=== PATIENT | male | born 1965 | race Caucasian/White ===

== ENCOUNTER 2024-11-04 08:32 | Emergency (ER) | payer BC, OTHER, SELFPAY ==
--- NOTE | ~2024-11-04 | XR_ITS ---
EXAMINATION: XR shoulder LT min 2V, XR humerus LT DATE: 11/04/2024 10:30 INDICATION: Left shoulder and humeral pain. TECHNIQUE: 1. AP internally and externally rotated, AP oblique externally rotated and transscapular Y views of t he left shoulder were obtained. 2. Internal rotated view of the left humerus was obtained. COMPARISON: None FINDINGS: Normal alignment. No fracture.Mild osteoarthritis at the left glenohumeral, acromioclavicular and el bow joints. Visualized portion of the left lung are clear. Soft tissues are unremarkable. 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 No acute osseous abnormality. Reviewed, dictated and finalized at location A. 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 No acute osse ous abnormality.
[2024-11-04 09:07] VITALS: BP 152/76; PULSE 79; RESP 18; TEMP 36.9; O2SAT 100
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
== END 2024-11-04 10:55 | disposition home or self-care (01) ==
PROVIDERS: Emergency Provider Registered Nurse
DX: S46.912A Strain of unspecified muscle, fascia and tendon at shoulder and upper arm level, left arm, initial encounter (principal); X50.0XXA Overexertion from strenuous movement or load, initial encounter; M75.22 Bicipital tendinitis, left shoulder
CPT/HCPCS: 73030; 73060; 99203; G0463

== ENCOUNTER 2024-11-22 15:48 | Emergency (ER) | payer BC, OTHER, SELFPAY ==
[2024-11-22 15:57] VITALS: BP 157/63; PULSE 80; RESP 18; TEMP 37.3; O2SAT 98
--- NOTE | 2024-11-22 16:36 | ED.URI ---
HPI - URI/Sore Throat General Chief Complaint: Upper Respiratory Infection Stated Complaint: sinus and ears Time Seen by Provider: 11/22/24 16:30 Source: patient, RN notes reviewed and old records reviewed Mode of arrival: ambulatory Limitations: no limitations History of Present Illness HPI Narrative: 59 year old male presents to [facility] care with complaints of 3-4 day history of sinus pressure, ear pressure, nasal congestion and drainage. Patient reports he is so blowing green mucus from his sinuses states he has been taking DayQuil without any relief in his symptoms Patient reports no known fevers or any noted body aches. Patient reports that he needs a Zpack. MD elicited complaint: sore throat, rhinorrhea, nasal congestion and other (ears) Onset (ago): day(s) (3-4 days) Consistency: progressively worsening Severity: moderate Able to tolerate fluids by mouth: Yes Treatments prior to arrival: other (DayQuil) Related Data Home Medications ?Medication ?Instructions ?Recorded ?Confirmed ?Last Taken ?Type balsalazide 750 mg capsule mg PO 11/04/24 Unknown History phenobarbital 32.4 mg tablet mg 11/04/24 Unknown History valproic acid 250 mg capsule mg PO 11/04/24 Unknown History Allergies Allergy/AdvReac Type Severity Reaction Status Date / Time Penicillins Allergy Unknown Other Verified 11/04/24 09:05 Review of Systems Review of Systems: CONSTITUTIONAL: Reports malaise, no chills, sweats, or fever. EYES: Denies visual changes, redness, or discharge. ENT: Reports rhinorrhea, congestion, sinus pain, bilateral ear pressure and no sore throat. CARDIOVASCULAR: Denies chest pain, palpitations, or edema. RESPIRATORY: Reports cough.? Denies dyspnea. GASTROINTESTINAL: Denies abdominal pain, nausea, vomiting, diarrhea SKIN: Denies rash or itching. MUSCULOSKELETAL: Denies myalgia. NEUROLOGIC: Denies headache. All systems reviewed & are unremarkable except as noted in HPI and below PMFSH Past Medical History Medical History (Updated 11/23/24 @ 00:00 by Background [place]) Ulcerative colitis Seizures Surgical History Surgical History (Updated 11/04/24 @ 09:47 by Ana Rosa Paige NP) History of shoulder surgery right Social History Social History (Updated 11/04/24 @ 09:49 by Ana Rosa Paige NP) Smoking status: Never smoker Alcohol intake: current Alcohol use details: rare social Substance use type: does not use Comments At time of signature, agree with nursing past medical, surgical, social and family history. There is no relevant family history pertinent to the presenting complaint Exam Narrative: GENERAL: Well-appearing, well-nourished, and in no acute distress. HEAD: Normocephalic EYES: PERRLA, conjunctivae clear ENT: Nares clear, turbinates edematous and erythematous, greenish tinged discharge, facial pressure.. Mucous membranes moist. TM pearly asencio with dull light reflex bilaterally; no tragal tenderness. Oropharynx erythematous without lesions. Tonsils not enlarged and without exudate, no drooling, no hoarseness, no trismus, uvula midline.post nasal drainage NECK: Supple. No lymphadenopathy CHEST: Clear to auscultation, breath sounds equal. No wheezing, rhonchi, rales, or stridor. No respiratory distress, speaks in full sentences.no acute cough noted SAO2 98% on room air HEART: Regular rate and rhythm. No murmur heard. SKIN: Warm, dry, no rash. NEURO: Alert and oriented x3. PSYCH: Normal mood and affect Course Course Emergency Course: Patient is aware of diagnosis, understands and agrees to treatment plan.? Anticipatory guidance given.? Patient agrees to follow-up as directed and is aware of reasons to seek care at the emergency department. Portions of this record may have been created with voice recognition software Level of Care: Express Care Visit Vital Signs Vital signs: Vital Signs Temperature 37.3 C 11/22/24 15:57 Pulse Rate 80 11/22/24 15:57 Respiratory Rate 18 11/22/24 15:57 Blood Pressure 157/63 H 11/22/24 15:57 Pulse Oximetry 98 11/22/24 15:57 Oxygen Delivery Room Air 11/22/24 15:57 Temperature 37.3 C 11/22/24 15:57 Pulse Rate 80 11/22/24 15:57 Respiratory Rate 18 11/22/24 15:57 Blood Pressure 157/63 H 11/22/24 15:57 Pulse Oximetry 98 11/22/24 15:57 Oxygen Delivery Room Air 11/22/24 15:57 Reviewed MDM - URI/Sore Throat MDM Narrative Medical decision making narrative: Differential diagnosis considered: Senior virus, strep pharyngitis, allergic rhinitis, upper respiratory tract infection, sinusitis, rhinosinusitis, nasopharyngitis. viral pharyngitis, otitis media, otitis externa, pneumonia, bronchitis, viral cough syndrome, viral syndrome, and influenza.? Exam findings show no acute concerns or changes; patient is non-toxic appearing and is in no distress.? Patient is appropriate for outpatient treatment and follow-up. Differential Diagnosis Differential diagnosis: Likely upper respiratory infection, otitis media, sinusitis and viral infection Medical Records Attestation: I reviewed the patient's medical records. Lab Data Attestation: I reviewed the patient's lab results. Critical Care Time Critical Care Time Critical Care Time: No Discharge Plan Discharge Clinical Impression: Bacterial sinusitis Patient Disposition: Home, Self-Care Condition: Stable Instructions: Antibiotic Form, Sinusitis (ED) Additional Instructions: Increase fluids especially juices and water [id number] cough and cold medicine of your choice for your symptoms Zyrtec Claritin or Randee daily may use Coricidin brand decongestant Tylenol or ibuprofen for any fever pain heat to the face 20-30 minutes 4-6 times a day for pain Salt water gargles, throat lozenges or throat sprays as desired Antibiotic as directed--finished the medication If your symptoms persist, change or worsen significantly before you can contact your personal physician then please, without delay, go to the emergency department for further evaluation. Follow-up with PCP in 7-10 days or sooner if needed Follow up with PCP soon in regards to your blood pressure which is elevated above threshold for referral. Blood pressure above 120/80 may indicate pre-hypertension. 157/63 Patient Language: Turkish Prescriptions: New azithromycin 250 mg tablet See Rx Instructions .ROUTE .COMPLEX Qty: 6 0RF Rx Instructions: For 250 mg dose pack: take 500 mg today (day 1), then 250 mg for 4 days (days 2-5) No Action valproic acid 250 mg capsule PO balsalazide 750 mg capsule PO phenobarbital 32.4 mg tablet cyclobenzaprine 10 mg tablet 10 mg PO HS PRN (Reason: muscle spasm) Qty: 14 0RF prednisone 20 mg tablet 20 mg PO BID Qty: 10 0RF Rx Instructions: Take with food take p.m. dose no later than 6:30 p.m. Follow-up/Referrals: PHYSICIAN NOT ON STAFF,NONSTAFF [Primary Care Provider] - Time of Disposition: 16:53 Quality Agust[place] Coma Scale Eyes: Open Verbal: Oriented and Alert Motor: Follows Commands [place] Coma Total Score: 15
== END 2024-11-22 16:54 | disposition home or self-care (01) ==
PROVIDERS: Emergency Provider Registered Nurse
DX: J32.9 Chronic sinusitis, unspecified (principal)
CPT/HCPCS: 99213; G0463